=== PATIENT | female | born 1945 | race Caucasian/White ===

== ENCOUNTER 2024-02-22 16:12 | Emergency (ER) | payer BC ==
[~2024-02-22] VITALS: Ht 172.7 cm; Wt 64.1 kg
--- NOTE | ~2024-02-22 | EKG ---
[facility] [address] [facility] [place], [place] [address] Draft EK completed, results pending confirmation PATIENT NAME: PING CONWAY Electrocardiogram DATE OF : 49 PHYSICIAN: PRELIMINARY REPORT #: [id number] REPORT IS CONFIDENTIAL AND NOT TO BE RELEASED WITHOUT AUTHORIZATION
[~2024-02-22 16:12] MED LIST: LISINOPRIL-HCT1 EACH PO; NORCO 5-325 TA1 EACH PO; PRAVASTATIN SOD20 MG PO; ZITHROMAX250 MG PO
[2024-02-22 16:39] LABS: BASOPHILS 0.5 % (0-2); EOSINOPHILS 0.6 % (0-6); HEMOGLOBIN 13.2 g/dL (12.0-18.0); LYMPHOCYTES 24.9 % (24-44); MCH 30.1 (27-36); MCHC 33.8 g/dl (30-36); MCV 88.9 fl (81-99); PLATELET COUNT 352 K/uL (140-440); RBC 4.38 M/ul (4.3-5.7); RDW 14.6 (10.5-15.0)
[2024-02-22 16:49] LABS: ALBUMIN/GLOBULIN RATIO 1.48 (1.1-2.4); ANION GAP 13.5 (7-21); BILIRUBIN, TOTAL 0.8 ng/dL (0.2-1.0); BUN/CREATININE RATIO 24.24 (6.0-28.6); CALCIUM 9.3 mg/dL (8.5-10.1); CREATININE, SERUM 0.66 mg/dL (0.55-1.02); POTASSIUM 3.5 mmol/L (3.5-5.1); PROTEIN, TOTAL 6.7 g/dL (6.4-8.2)
[2024-02-22] MEDS ORDERED: SODIUM CHLORIDE 0.9% 1,000 ML IV PRN (17:30)
[2024-02-22 17:39] LABS: MAGNESIUM 1.9 mg/dL (1.8-2.4)
[2024-02-22 18:50] LABS: BILIRUBIN, URINE NEGATIVE (negative); BLOOD/HGB, URINE NEGATIVE (Negative); KETONE, URINE NEGATIVE (Negative); LEUK ESTERASE, URINE LARGE (negative); NITRITE, URINE NEGATIVE (negative); PH, URINE 7.5 (5-7)
[2024-02-22 18:56] LABS: BACTERIA, URINE NONE SEEN /hpf (negative); CASTS, URINE NONE SEEN \\lpf; CRYSTALS, URINE NONE SEEN (0-1+); RED BLOOD CELLS, URINE 0-1 /hpf (0-5); REFLEX CULTURE, URINE No (No)
[2024-02-22 18:57] LABS: COLLECTION TYPE, URINE CLEAN CATCH
[2024-02-22 18:58] LABS: ANION GAP 12.4 (7-21); BUN/CREATININE RATIO 25.42 (6.0-28.6); CALCIUM 8.6 mg/dL (8.5-10.1); CREATININE, SERUM 0.59 mg/dL (0.55-1.02); POTASSIUM 3.4 mmol/L (3.5-5.1)
[2024-02-22] MEDS ORDERED: LISINOPRIL20 MG PO (19:08)
[2024-02-22 19:20] VITALS: BP 158/70
== END 2024-02-22 19:20 | disposition home or self-care (01) ==
LOC: ED 16:12
PROVIDERS: Emergency Medicine
DX: R20.2 Paresthesia of skin (principal); E87.1 Hypo-osmolality and hyponatremia; I10 Essential (primary) hypertension; Z88.0 Allergy status to penicillin; Z79.899 Other long term (current) drug therapy
CPT/HCPCS: 36415; 80048; 80053; 81001; 83735; 84484; 85025; 93005; 93010; J7030